=== PATIENT | female | born 1990 | race Caucasian/White ===

== ENCOUNTER 2020-04-18 19:49 | Inpatient (IN) | payer MEDICAID, OTHER ==
[~2020-04-18] VITALS: Ht 165.1 cm; Wt 85.3 kg
[~2020-04-18 19:49] MED LIST: ALBU8HFA IH; CITA-144 PO
[2020-04-18] MEDS ORDERED: LORazepam 2 MG/ML VIAL IM ONE (20:00)
[2020-04-18] MEDS ORDERED: HALOPERIDOL LACTATE 5 MG/ML VIAL IM ONE (20:00)
[2020-04-18] MEDS ORDERED: DiphenhydrAMINE HCL 50 MG/ML VIAL IM ONE (20:00)
[2020-04-18 21:26] LABS: COVID AG,FIA SOURCE NASOPHARYNGEAL
[2020-04-19] MEDS ORDERED: NICOTINE 14 MG/24 HOUR PATCH TD PRN
[2020-04-19] MEDS ORDERED: IBUPROFEN 400 MG TABLET PO PRN
[2020-04-19 02:21] VITALS: BP 133/73
[2020-04-19] MEDS ORDERED: INFLUENZA VIRUS VACCINE QVS 2020-21 (6MO+)/PF 60 MCG/0.5 ML SYRINGE IM ONE (03:45)
[2020-04-19 08:18] VITALS: BP 110/61
[2020-04-19] MEDS: CITALOPRAM HYDROBROMIDE 20 MG TABLET PO SCH (10:45)
[2020-04-19] MEDS: OLANZapine 5 MG TABLET PO SCH ×2 (10:45→17:00)
[2020-04-19] MEDS: LORazepam 2 MG TABLET PO PRN (12:30)
[2020-04-19] MEDS: BACITRACIN 28 GM OINTMENT TP SCH ×2 (12:32→17:00)
[2020-04-19] MEDS ORDERED: ChlorproMAZINE HCL 50 MG/2 ML AMP IM ONE ×2 (13:45→14:45)
[2020-04-19] MEDS ORDERED: LORazepam 2 MG/ML VIAL IM ONE ×2 (13:45→14:45)
[2020-04-19] MEDS ORDERED: DiphenhydrAMINE HCL 50 MG/ML VIAL ONE (13:45)
[2020-04-19] MEDS ORDERED: DiphenhydrAMINE HCL 50 MG/ML VIAL IM ONE ×2 (13:45→14:45)
[2020-04-19] MEDS ORDERED: ChlorproMAZINE HCL 50 MG/2 ML AMP ONE (13:46)
[2020-04-19] MEDS ORDERED: ACETAMINOPHEN 325 MG TABLET PO PRN ×2 (14:15)
[2020-04-19] MEDS ORDERED: GuaiFENesin/D-METHORPHAN [SUGAR-FREE] 200-20MG/10 ML SYRUP UDCUP PO PRN ×2 (14:15)
[2020-04-19] MEDS ORDERED: CloNIDine HCL 0.1 MG TABLET PO PRN ×2 (14:15)
[2020-04-19] MEDS ORDERED: DOCUSATE SODIUM 100 MG CAPSULE PO PRN ×2 (14:15)
[2020-04-19] MEDS ORDERED: MAGNESIUM HYDROXIDE SUSPENSION 30 ML UDCUP PO PRN ×2 (14:15)
[2020-04-19] MEDS ORDERED: ALBUTEROL SULFATE HFA 90 MCG/PUFF 8 GM INHALER IH PRN ×3 (14:15)
[2020-04-19] MEDS ORDERED: PETROLATUM,WHITE 28 GM JELLY TP PRN ×2 (14:15)
[2020-04-19] MEDS ORDERED: LOPERAMIDE HCL 2 MG CAPSULE PO PRN ×2 (14:15)
[2020-04-19] MEDS ORDERED: MAG HYDROX/AL HYDROX/SIMETH ES 30 ML SUSPENSION UDCUP PO PRN ×2 (14:15)
[2020-04-19] MEDS ORDERED: ONDANSETRON HCL 4 MG TABLET PO PRN ×2 (14:15)
[2020-04-19 16:08] VITALS: BP 116/68
[2020-04-20] MEDS: OLANZapine 5 MG TABLET PO SCH ×2 (08:30→17:00)
[2020-04-20] MEDS: CITALOPRAM HYDROBROMIDE 20 MG TABLET PO SCH (08:30)
[2020-04-20] MEDS: BACITRACIN 28 GM OINTMENT TP SCH ×2 (08:32→17:20)
[2020-04-20 16:12] VITALS: BP 136/88
[2020-04-21 01:25] VITALS: BP 128/82
[2020-04-21] MEDS: CITALOPRAM HYDROBROMIDE 20 MG TABLET PO SCH (08:27)
[2020-04-21] MEDS: OLANZapine 5 MG TABLET PO SCH ×3 (08:27→16:48)
[2020-04-21] MEDS: BACITRACIN 28 GM OINTMENT TP SCH ×2 (08:28→16:40)
[2020-04-21] MEDS: LORazepam 2 MG TABLET PO PRN (16:41)
[2020-04-21 17:50] VITALS: BP 131/82
[2020-04-22 06:17] VITALS: BP 126/79
[2020-04-22] MEDS: CITALOPRAM HYDROBROMIDE 20 MG TABLET PO SCH (08:27)
[2020-04-22] MEDS: OLANZapine 5 MG TABLET PO SCH ×2 (08:27→17:00)
[2020-04-22] MEDS: BACITRACIN 28 GM OINTMENT TP SCH ×2 (08:28→17:00)
[2020-04-22] MEDS: LORazepam 2 MG TABLET PO PRN (16:09)
[2020-04-23] MEDS: LORazepam 2 MG TABLET PO PRN ×3 (03:29→16:55)
[2020-04-23] MEDS: CITALOPRAM HYDROBROMIDE 20 MG TABLET PO SCH ×2 (09:03→15:43)
[2020-04-23] MEDS: OLANZapine 5 MG TABLET PO SCH ×2 (09:03→17:05)
[2020-04-23] MEDS: BACITRACIN 28 GM OINTMENT TP SCH (09:14)
[2020-04-24] MEDS: BACITRACIN 28 GM OINTMENT TP SCH (09:00)
[2020-04-24] MEDS: OLANZapine 5 MG TABLET PO SCH ×2 (09:00→17:33)
[2020-04-24] MEDS: CITALOPRAM HYDROBROMIDE 20 MG TABLET PO SCH (09:00)
[2020-04-24] MEDS: LORazepam 2 MG TABLET PO PRN ×2 (11:46→17:33)
[2020-04-24] MEDS: NICOTINE 14 MG/24 HOUR PATCH TD PRN (18:56)
[2020-04-24] MEDS: QUEtiapine FUMARATE 100 MG TABLET PO PRN (19:16)
[2020-04-25] MEDS: LORazepam 2 MG TABLET PO PRN ×3 (06:34→16:49)
[2020-04-25] MEDS: BACITRACIN 28 GM OINTMENT TP SCH ×2 (09:00→16:49)
[2020-04-25] MEDS: OLANZapine 5 MG TABLET PO SCH ×2 (09:11→16:48)
[2020-04-25] MEDS: NICOTINE 14 MG/24 HOUR PATCH TD PRN (09:12)
[2020-04-26] MEDS: LORazepam 2 MG TABLET PO PRN ×3 (00:50→17:04)
[2020-04-26 08:05] VITALS: BP 117/71
[2020-04-26] MEDS: CITALOPRAM HYDROBROMIDE 20 MG TABLET PO SCH (08:39)
[2020-04-26] MEDS: OLANZapine 5 MG TABLET PO SCH ×2 (08:39→17:04)
[2020-04-26] MEDS: NICOTINE 21 MG/24 HOUR PATCH TD SCH (08:40)
[2020-04-26] MEDS: BACITRACIN 28 GM OINTMENT TP SCH ×2 (08:41→17:00)
[2020-04-26 16:08] VITALS: BP 120/72
[2020-04-27 01:19] VITALS: BP 116/68
[2020-04-27] MEDS: LORazepam 2 MG TABLET PO PRN ×2 (09:17→16:38)
[2020-04-27] MEDS: OLANZapine 5 MG TABLET PO SCH ×2 (09:17→16:31)
[2020-04-27] MEDS: NICOTINE 21 MG/24 HOUR PATCH TD SCH (09:17)
[2020-04-27] MEDS: CITALOPRAM HYDROBROMIDE 20 MG TABLET PO SCH (09:17)
[2020-04-27] MEDS: BACITRACIN 28 GM OINTMENT TP SCH ×2 (09:25→16:31)
[2020-04-27 16:24] VITALS: BP 114/72
[2020-04-28 01:22] VITALS: BP 106/77
[2020-04-28] MEDS: OLANZapine 5 MG TABLET PO SCH ×2 (08:01→16:41)
[2020-04-28] MEDS: CITALOPRAM HYDROBROMIDE 20 MG TABLET PO SCH (08:01)
[2020-04-28] MEDS: NICOTINE 21 MG/24 HOUR PATCH TD SCH (09:00)
[2020-04-28] MEDS: BACITRACIN 28 GM OINTMENT TP SCH ×2 (09:00→16:40)
[2020-04-28] MEDS: LORazepam 2 MG TABLET PO PRN (16:41)
[2020-04-29 08:25] VITALS: BP 147/76
[2020-04-29] MEDS: LORazepam 2 MG TABLET PO PRN ×2 (08:28→16:02)
[2020-04-29] MEDS: CITALOPRAM HYDROBROMIDE 20 MG TABLET PO SCH (08:28)
[2020-04-29] MEDS: NICOTINE 21 MG/24 HOUR PATCH TD SCH (08:28)
[2020-04-29] MEDS: OLANZapine 5 MG TABLET PO SCH ×2 (08:28→16:02)
[2020-04-29] MEDS: BACITRACIN 28 GM OINTMENT TP SCH ×2 (08:28→16:08)
[2020-04-29] MEDS: IBUPROFEN 400 MG TABLET PO PRN (09:47)
[2020-04-30] MEDS: ZOLPIDEM TARTRATE 10 MG TABLET PO PRN (02:54)
[2020-04-30] MEDS: QUEtiapine FUMARATE 100 MG TABLET PO PRN (03:00)
[2020-04-30] MEDS: LORazepam 2 MG TABLET PO PRN ×4 (03:41→17:56)
[2020-04-30 08:27] VITALS: BP 121/69
[2020-04-30] MEDS: CITALOPRAM HYDROBROMIDE 20 MG TABLET PO SCH (08:41)
[2020-04-30] MEDS: OLANZapine 5 MG TABLET PO SCH ×2 (08:41→16:12)
[2020-04-30] MEDS: BACITRACIN 28 GM OINTMENT TP SCH ×2 (08:42→16:13)
[2020-04-30] MEDS: NICOTINE 21 MG/24 HOUR PATCH TD SCH (08:42)
[2020-05-01 04:48] VITALS: BP 128/72
[2020-05-01] MEDS: LORazepam 2 MG TABLET PO PRN ×2 (04:50→16:22)
[2020-05-01] MEDS: NICOTINE 21 MG/24 HOUR PATCH TD SCH (09:22)
[2020-05-01] MEDS: OLANZapine 5 MG TABLET PO SCH ×2 (09:22→16:22)
[2020-05-01] MEDS: CITALOPRAM HYDROBROMIDE 20 MG TABLET PO SCH (09:22)
[2020-05-01] MEDS: BACITRACIN 28 GM OINTMENT TP SCH ×2 (09:24→16:23)
[2020-05-01] MEDS ORDERED: MULTIVITAMINS, THERAPEUTIC TABLET PO ONE (13:00)
[2020-05-01] MEDS: QUEtiapine FUMARATE 100 MG TABLET PO PRN (17:46)
[2020-05-02] MEDS: QUEtiapine FUMARATE 100 MG TABLET PO PRN ×2 (03:15→15:51)
[2020-05-02] MEDS: LORazepam 2 MG TABLET PO PRN ×3 (03:15→13:14)
[2020-05-02] MEDS: CITALOPRAM HYDROBROMIDE 20 MG TABLET PO SCH (08:22)
[2020-05-02] MEDS: OLANZapine 5 MG TABLET PO SCH ×2 (08:22→17:12)
[2020-05-02] MEDS: NICOTINE 21 MG/24 HOUR PATCH TD SCH (08:27)
[2020-05-02] MEDS: BACITRACIN 28 GM OINTMENT TP SCH ×2 (09:40→16:17)
[2020-05-02 16:15] VITALS: BP 106/71
[2020-05-03 00:43] VITALS: BP 142/88
[2020-05-03] MEDS: LORazepam 2 MG TABLET PO PRN ×3 (00:46→14:15)
[2020-05-03] MEDS: ZOLPIDEM TARTRATE 10 MG TABLET PO PRN (00:46)
[2020-05-03] MEDS: BACITRACIN 28 GM OINTMENT TP SCH ×2 (08:19→17:00)
[2020-05-03] MEDS: NICOTINE 21 MG/24 HOUR PATCH TD SCH (08:19)
[2020-05-03] MEDS: CITALOPRAM HYDROBROMIDE 20 MG TABLET PO SCH (08:19)
[2020-05-03] MEDS: OLANZapine 5 MG TABLET PO SCH (08:19)
[2020-05-03] MEDS: OLANZapine 10 MG TABLET PO SCH (16:49)
[2020-05-04] MEDS: ZOLPIDEM TARTRATE 10 MG TABLET PO PRN ×2 (01:58→22:44)
[2020-05-04] MEDS: LORazepam 2 MG TABLET PO PRN ×2 (02:02→08:22)
[2020-05-04 02:06] VITALS: BP 128/84
[2020-05-04] MEDS: IBUPROFEN 400 MG TABLET PO PRN ×2 (07:08→17:10)
[2020-05-04] MEDS: QUEtiapine FUMARATE 100 MG TABLET PO PRN (08:22)
[2020-05-04] MEDS: CITALOPRAM HYDROBROMIDE 20 MG TABLET PO SCH (08:22)
[2020-05-04] MEDS: OLANZapine 10 MG TABLET PO SCH ×2 (08:22→16:22)
[2020-05-04] MEDS: NICOTINE 21 MG/24 HOUR PATCH TD SCH (08:30)
[2020-05-04] MEDS: BACITRACIN 28 GM OINTMENT TP SCH ×2 (08:30→16:22)
[2020-05-04 16:19] VITALS: BP 107/67
[2020-05-04 17:00] VITALS: BP 115/70
[2020-05-05] MEDS: CITALOPRAM HYDROBROMIDE 20 MG TABLET PO SCH (08:20)
[2020-05-05] MEDS: OLANZapine 10 MG TABLET PO SCH ×2 (08:20→16:53)
[2020-05-05] MEDS: NICOTINE 21 MG/24 HOUR PATCH TD SCH (08:21)
[2020-05-05] MEDS: LORazepam 2 MG TABLET PO PRN ×2 (08:21→13:31)
[2020-05-05] MEDS: BACITRACIN 28 GM OINTMENT TP SCH (08:21)
[2020-05-05] MEDS ORDERED: OLAN10TA3 PO (14:42)
== END 2020-05-05 16:40 | disposition home or self-care (01) | DRG 750 ==
LOC: EMS 19:51 → B3A 22:23
PROVIDERS: ADMIT Psychiatry & Neurology Child & Adolescent Psychiatry; ATTEND Psychiatry & Neurology Child & Adolescent Psychiatry
DX: F25.1 Schizoaffective disorder, depressive type (principal); R45.851 Suicidal ideations; Z59.0 Homelessness; F41.9 Anxiety disorder, unspecified; Z88.8 Allergy status to other drugs, medicaments and biological substances; J45.909 Unspecified asthma, uncomplicated; F19.10 Other psychoactive substance abuse, uncomplicated; F17.200 Nicotine dependence, unspecified, uncomplicated; Z91.14 Patient's other noncompliance with medication regimen; Z20.828 Contact with and (suspected) exposure to other viral communicable diseases; Z28.21 Immunization not carried out because of patient refusal
CPT/HCPCS: 87426; 90686; 99291; J1200; J1630; J2060; J3230

== ENCOUNTER 2020-12-01 16:02 | Inpatient (IN) | payer MEDICAID, OTHER ==
[~2020-12-01] VITALS: Ht 167.6 cm; Wt 80.7 kg
[~2020-12-01 16:02] MED LIST changes: -ALBU8HFA IH; +OLAN10TA74 PO
[2020-12-01 17:26] LABS: COVID AG,FIA SOURCE NASOPHARYNGEAL
[2020-12-01 17:33] LABS: BASOPHILS % (AUTO) 0.6 % (0.0-2.0); EOSINOPHILS % (AUTO) 0.4 % (1.0-6.0); HEMATOCRIT 31.9 % (36-46); HEMOGLOBIN 10.5 g/dL (12.0-16.0); LYMPHOCYTES # (AUTO) 1.9 K/uL (1.0-4.8); LYMPHOCYTES % (AUTO) 18.2 % (22.0-44.0); MEAN CORPUSCULAR HEMOGLOBIN 29.4 pg (26.0-34.0); MEAN CORPUSCULAR HGB CONC 33.1 G/dL (31.0-37.0); MEAN CORPUSCULAR VOLUME 89 fL (80-100); MONOCYTES % (AUTO) 9.2 % (2.0-9.0); NEUTROPHILS # (AUTO) 7.6 K/uL (1.8-7.7); NEUTROPHILS % (AUTO) 71.6 % (40.0-70.0); PLATELET COUNT (AUTO) 302 K/uL (150-450); RED BLOOD CELL COUNT(AUTO) 3.58 MIL/uL (4.00-5.20); RED CELL DISTRIBUTION WIDTH 14.3 % (11.5-14.5)
[2020-12-01 17:43] LABS: ANION GAP 10 mmol/L (8-16); CALCIUM, TOTAL 8.4 mg/dL (8.8-10.5); CARBON DIOXIDE 25 mmol/L (22-29); CHLORIDE 103 mmol/L (98-107); CREATININE 1.02 mg/dL (0.60-1.30); GLOMERULAR FILTR. RATE CALC > 60 mL/min (>60); GLUCOSE,RANDOM 116 mg/dL (70-110); POTASSIUM 4.1 mmol/L (3.5-5.1); SODIUM SERUM 138 mmol/L (136-145); UREA NITROGEN, BLOOD 34 mg/dL (7-18)
[2020-12-01 17:49] LABS: ALANINE AMINOTRANSFERASE 58 U/L (12-78); ALBUMIN 3.3 g/dL (3.4-5.0); ALKALINE PHOSPHATASE 91 U/L (46-116); ASPARTATE AMINOTRANSFERASE 54 U/L (15-37); BILIRUBIN,TOTAL 0.4 mg/dL (0.1-1.0); TOTAL PROTEIN, SERUM 6.6 g/dL (6.4-8.2)
[2020-12-01] MEDS ORDERED: LORazepam 2 MG/ML VIAL IM ONE (18:00)
[2020-12-01] MEDS ORDERED: DiphenhydrAMINE HCL 50 MG/ML VIAL IM ONE (18:00)
[2020-12-01] MEDS ORDERED: ZOLPIDEM TARTRATE 10 MG TABLET PO PRN (18:45)
[2020-12-01 19:29] VITALS: BP 116/67
[2020-12-01] MEDS ORDERED: LOPERAMIDE HCL 2 MG CAPSULE PO PRN (23:45)
[2020-12-01] MEDS ORDERED: PETROLATUM,WHITE 28 GM JELLY TP PRN (23:45)
[2020-12-01] MEDS ORDERED: OMEPRAZOLE 20 MG CAPSULE PO PRN (23:45)
[2020-12-01] MEDS ORDERED: ONDANSETRON HCL 4 MG TABLET PO PRN (23:45)
[2020-12-01] MEDS ORDERED: BACITRACIN 28 GM OINTMENT TP PRN (23:45)
[2020-12-01] MEDS ORDERED: ALBUTEROL SULFATE HFA 90 MCG/PUFF 8 GM INHALER IH PRN (23:45)
[2020-12-01] MEDS ORDERED: MAGNESIUM HYDROXIDE SUSPENSION 30 ML UDCUP PO PRN (23:45)
[2020-12-01] MEDS ORDERED: DOCUSATE SODIUM 100 MG CAPSULE PO PRN (23:45)
[2020-12-01] MEDS ORDERED: MAG HYDROX/AL HYDROX/SIMETH ES 30 ML SUSPENSION UDCUP PO PRN (23:45)
[2020-12-01] MEDS ORDERED: BENZOCAINE/MENTHOL LOZENGE PO PRN (23:45)
[2020-12-01] MEDS ORDERED: CloNIDine HCL 0.1 MG TABLET PO PRN (23:45)
[2020-12-01] MEDS ORDERED: ACETAMINOPHEN 325 MG TABLET PO PRN (23:45)
[2020-12-02] MEDS: QUEtiapine FUMARATE 100 MG TABLET PO PRN ×2 (09:31→17:28)
[2020-12-02] MEDS: LORazepam 2 MG TABLET PO PRN (09:32)
[2020-12-02] MEDS: IBUPROFEN 600 MG TABLET PO PRN (09:32)
[2020-12-03] MEDS: QUEtiapine FUMARATE 100 MG TABLET PO PRN ×2 (10:27→17:27)
[2020-12-03] MEDS: LORazepam 2 MG TABLET PO PRN (10:27)
[2020-12-03] MEDS: IBUPROFEN 600 MG TABLET PO PRN (10:33)
[2020-12-04] MEDS: LORazepam 2 MG TABLET PO PRN ×2 (10:21→17:55)
[2020-12-04] MEDS: QUEtiapine FUMARATE 100 MG TABLET PO PRN ×2 (10:21→17:55)
[2020-12-04] MEDS ORDERED: OLANZapine 5 MG TABLET PO SCH (21:00)
[2020-12-05] MEDS: LORazepam 2 MG TABLET PO PRN ×3 (08:18→18:07)
[2020-12-05] MEDS: QUEtiapine FUMARATE 100 MG TABLET PO PRN ×3 (08:18→18:07)
[2020-12-05 16:32] VITALS: BP 138/86
[2020-12-05] MEDS: OLANZapine 7.5 MG TABLET PO SCH (21:26)
[2020-12-06] MEDS: QUEtiapine FUMARATE 100 MG TABLET PO PRN ×2 (15:40→20:24)
[2020-12-06] MEDS: LORazepam 2 MG TABLET PO PRN (15:46)
[2020-12-06] MEDS: OLANZapine 7.5 MG TABLET PO SCH (20:25)
[2020-12-07] MEDS: LORazepam 2 MG TABLET PO PRN (14:05)
[2020-12-07] MEDS: QUEtiapine FUMARATE 100 MG TABLET PO PRN ×2 (14:05→18:48)
[2020-12-07] MEDS: OLANZapine 7.5 MG TABLET PO SCH (20:41)
[2020-12-08] MEDS: QUEtiapine FUMARATE 100 MG TABLET PO PRN ×2 (12:20→16:32)
[2020-12-08] MEDS: LORazepam 2 MG TABLET PO PRN ×2 (12:20→16:31)
[2020-12-08] MEDS: OLANZapine 7.5 MG TABLET PO SCH (20:04)
[2020-12-09] MEDS: LORazepam 2 MG TABLET PO PRN ×3 (10:35→20:52)
[2020-12-09] MEDS: QUEtiapine FUMARATE 100 MG TABLET PO PRN ×3 (10:35→19:53)
[2020-12-09] MEDS: OLANZapine 7.5 MG TABLET PO SCH (20:13)
[2020-12-10] MEDS: QUEtiapine FUMARATE 100 MG TABLET PO PRN ×2 (08:10→15:54)
[2020-12-10] MEDS: LORazepam 2 MG TABLET PO PRN ×2 (08:10→15:54)
[2020-12-10] MEDS ORDERED: NICOTINE 14 MG/24 HOUR PATCH TD ONE (15:55)
[2020-12-10] MEDS: NICOTINE 14 MG/24 HOUR PATCH TD SCH (15:56)
[2020-12-10] MEDS: OLANZapine 7.5 MG TABLET PO SCH (21:37)
[2020-12-11] MEDS: QUEtiapine FUMARATE 100 MG TABLET PO PRN ×2 (08:21→13:50)
[2020-12-11] MEDS: LORazepam 2 MG TABLET PO PRN ×2 (08:21→13:50)
[2020-12-11] MEDS: NICOTINE 14 MG/24 HOUR PATCH TD SCH (08:21)
[2020-12-11 16:30] VITALS: BP 115/80
[2020-12-11] MEDS: OLANZapine 7.5 MG TABLET PO SCH (21:34)
[2020-12-12] MEDS: NICOTINE 14 MG/24 HOUR PATCH TD SCH (08:49)
[2020-12-12] MEDS: QUEtiapine FUMARATE 100 MG TABLET PO PRN ×3 (08:53→20:20)
[2020-12-12] MEDS: LORazepam 2 MG TABLET PO PRN ×2 (08:53→15:48)
[2020-12-12] MEDS: OLANZapine 7.5 MG TABLET PO SCH (20:07)
[2020-12-13] MEDS: NICOTINE 14 MG/24 HOUR PATCH TD SCH (09:19)
[2020-12-13] MEDS: QUEtiapine FUMARATE 100 MG TABLET PO PRN (14:10)
[2020-12-13] MEDS: LORazepam 2 MG TABLET PO PRN (14:10)
[2020-12-13] MEDS: OLANZapine 7.5 MG TABLET PO SCH (21:14)
[2020-12-14] MEDS: QUEtiapine FUMARATE 100 MG TABLET PO PRN ×3 (08:26→20:01)
[2020-12-14] MEDS: NICOTINE 14 MG/24 HOUR PATCH TD SCH (08:26)
[2020-12-14] MEDS: LORazepam 2 MG TABLET PO PRN ×2 (08:27→15:43)
[2020-12-14] MEDS: OLANZapine 7.5 MG TABLET PO SCH (20:01)
[2020-12-15] MEDS: QUEtiapine FUMARATE 100 MG TABLET PO PRN ×3 (07:21→17:05)
[2020-12-15] MEDS: LORazepam 2 MG TABLET PO PRN ×3 (07:21→17:05)
[2020-12-15 08:00] VITALS: BP 128/81
[2020-12-15] MEDS: NICOTINE 14 MG/24 HOUR PATCH TD SCH (09:19)
[2020-12-15] MEDS: OLANZapine 7.5 MG TABLET PO SCH (20:00)
[2020-12-16] MEDS: LORazepam 2 MG TABLET PO PRN ×4 (02:07→20:09)
[2020-12-16] MEDS: NICOTINE 14 MG/24 HOUR PATCH TD SCH (08:26)
[2020-12-16] MEDS: QUEtiapine FUMARATE 100 MG TABLET PO PRN ×3 (08:27→19:20)
[2020-12-16 10:30] VITALS: BP 150/90
[2020-12-16] MEDS ORDERED: OLANZapine 10 MG TABLET PO SCH (21:00)
[2020-12-17] MEDS: QUEtiapine FUMARATE 100 MG TABLET PO PRN (08:57)
[2020-12-17] MEDS: NICOTINE 14 MG/24 HOUR PATCH TD SCH (08:57)
[2020-12-17] MEDS: LORazepam 2 MG TABLET PO PRN (08:57)
== END 2020-12-17 17:15 | disposition home or self-care (01) | DRG 750 ==
LOC: EMS 16:02 → 3EC 18:25
PROVIDERS: ADMIT Psychiatry & Neurology Psychiatry; ATTEND Psychiatry & Neurology Psychiatry
DX: F25.9 Schizoaffective disorder, unspecified (principal); Z91.19 Patient's noncompliance with other medical treatment and regimen; Z20.822 Contact with and (suspected) exposure to COVID-19
CPT/HCPCS: 80053; 85025; 99291; G0480; J1200; J2060